=== PATIENT | female | born 1965 | race Two or more races ===

== ENCOUNTER 2021-05-02 10:58 | Emergency (ER) | payer MEDICAID ==
[~2021-05-02] VITALS: Ht 162.6 cm; Wt 77.1 kg
[~2021-05-02 10:58] MED LIST: PAR20T PO
[2021-05-02 11:50] VITALS: BP 130/65
[2021-05-02] MEDS ORDERED: IBUPROFEN 800 MG TAB PO ONE (12:30)
== END 2021-05-02 12:46 | disposition home or self-care (01) ==
LOC: ER 10:58
DX: S52.502A Unspecified fracture of the lower end of left radius, initial encounter for closed fracture (principal); S52.612A Displaced fracture of left ulna styloid process, initial encounter for closed fracture; S46.911A Strain of unspecified muscle, fascia and tendon at shoulder and upper arm level, right arm, initial encounter; E78.5 Hyperlipidemia, unspecified; Z90.89 Acquired absence of other organs; Z79.899 Other long term (current) drug therapy; W18.39XA Other fall on same level, initial encounter; Y93.89 Activity, other specified; Y92.89 Other specified places as the place of occurrence of the external cause; Y99.8 Other external cause status
CPT/HCPCS: 29105; 73030; 73110; 73130